=== PATIENT | female | born 1965 | race American Indian/Alaskan Native ===

== ENCOUNTER 2022-05-24 17:44 | Emergency (ER) | payer MEDICARE ==
[2022-05-24] MEDS ORDERED: ASPIRIN 325 MG TAB PO ONE (17:52)
--- NOTE | 2022-05-24 18:16 | XRay Report ---
CHEST 2 VIEWS INDICATION / CLINICAL INFORMATION: chest pain. COMPARISON: None available. FINDINGS: SUPPORT DEVICES: None. HEART / MEDIASTINUM: No significant abnormality. LUNGS / PLEURA: No significant pulmonary or pleural abnormality. No pneumothorax. ADDITIONAL FINDINGS: No significant additional findings. IMPRESSION: 1. No acute findings. Signer Name: Roberto Sandhu MD Signed: 05/24/2022 6:12 PM Workstation Name: [id number]
[2022-05-24] MEDS ORDERED: BUTALB/ACETAMINOPHEN/CAFFEINE TAB PO ONE (22:49)
[2022-05-25 08:19] LABS: Basophils % (Auto) 0.5 % (0.0-1.8); Eosinophils % (Auto) 0.1 % (0.0-4.3); Hematocrit 43.7 % (30.3-42.9); Hemoglobin 14.2 gm/dl (10.1-14.3); Lymphocytes % (Auto) 35.4 % (13.4-35.0); Mean Corpuscular HGB Conc 33 % (30-34); Mean Corpuscular Volume 90 fl (79-97); Monocytes # (Auto) 0.6 K/mm3 (0.0-0.8); Monocytes % (Auto) 11.2 % (0.0-7.3); Platelet Count 120 K/mm3 (140-440); Red Blood Count 4.83 M/mm3 (3.65-5.03); Red Cell Distribution Width 14.4 % (13.2-15.2)
[2022-05-25 08:43] LABS: Alanine Aminotransferase 17 units/L (7-56); Albumin 4.5 g/dL (3.9-5); Blood Urea Nitrogen 7 mg/dL (7-17); Calcium 9.3 mg/dL (8.4-10.2); Hemolysis Index 1
[2022-05-25 08:45] LABS: BUN/Creatinine Ratio 10
[2022-05-25] MEDS ORDERED: dexAMETHasone 4 MG/ML VIAL IM ONE (09:34)
[2022-05-25] MEDS ORDERED: METOCLOPRAMIDE 10 MG TAB PO ONE (09:34)
[2022-05-25] MEDS ORDERED: diphenhydrAMINE 25 MG CAP PO ONE (09:34)
[2022-05-25] MEDS ORDERED: cloNIDine 0.2 MG TAB PO ONE (09:34)
[2022-05-25] MEDS ORDERED: POTASSIUM CHLORIDE ER 20 MEQ TAB PO ONE (09:36)
--- NOTE | 2022-05-25 10:07 | Cat Scan Report ---
CT HEAD WITHOUT CONTRAST INDICATION / CLINICAL INFORMATION: guy, vision changes. TECHNIQUE: All CT scans at this location are performed using CT dose reduction for ALARA by means of automated e xposure control. COMPARISON: None available. FINDINGS: HEMORRHAGE: No evidence of intracranial hemorrhage or extra-axial fluid collection. EXTRA-AXIAL SPACES: Cortical sulci, sylvian fissures and basilar cisterns have an unremarkable appear ance. VENTRICULAR SYSTEM: The third and lateral ventricles are of normal size and configuration. CEREBRAL PARENCHYMA: No areas of abnormal brain parenchymal attenuation are identified. There is no i ndication of recent infarction. MIDLINE SHIFT OR HERNIATION: There is no mass effect. CEREBELLUM / BRAINSTEM: Brainstem and cerebellum have an unremarkable appearance. MIDLINE STRUCTURES:No abnormalities of the pituitary gland or pineal region are identified. INTRACRANIAL VESSELS:No abnormalities are identified on this noncontrast head CT. ORBITS: Bilaterally symmetrical enlargement of the lacrimal glands is noted. Are there signs or sympt oms of Sjogren's syndrome Visualized portions of the orbits have an otherwise unremarkable appearance . SOFT TISSUES of HEAD: No significant abnormality. CALVARIUM: Evaluation of bone windows reveals no abnormalities. PARANASAL SINUSES / MASTOID AIR CELLS: Visualized portions of the paranasal sinuses are free from inf lammatory mucosal disease. Mastoid air cells are normally pneumatized. ADDITIONAL FINDINGS: None. IMPRESSION: 1. No significant intracranial abnormality. 2. Bilateral lacrimal gland enlargement as noted above. Signer Name: Sebastian Taylor MD Signed: 05/25/2022 10:02 AM Workstation Name: [id number]
--- NOTE | 2022-05-25 10:17 | Emergency Department Report ---
ED Chest Pain HPI - General Chief Complaint: Chest Pain Stated Complaint: STROKE SYMPTONS Time Seen by Provider: 05/25/22 09:35 Source: patient Mode of arrival: Ambulatory Limitations: No Limitations - History of Present Illness Initial Comments: 57-year-old black female with a past medical history of hypertension, diabetes, and a CVA presents to the emergency department for evaluation of 5-day history of a headache and chest pain that developed 1 day ago. She states that at home she has had a headache for 5 days and thought that headache was being caused by an elevated blood pressure. She states that she did not take any xsth-[id number]-[id number] medications for her headache. She states that she has some vision changes and photophobia with her headache. She states that yesterday she developed chest pain that was associated with shortness of breath, nausea, and dizziness. She states that she did not have any active vomiting or diaphoresis. She states that pain from her headache and chest pain was 10 on a 10 point scale. MD Complaint: chest pain -: Gradual, days(s) (1) Onset: during rest Pain Location: substernal Pain Radiation: none Severity: severe Severity scale (0 -10): 10 Quality: aching Consistency: constant Worsens With: movement re: nausea, dyspnea. denies: vomting, diaphoresis, sense of impending doom Other Symptoms: denies: cough, fever, syncope, rash, acid taste in mouth, leg swelling, palpitations, burping Treatments Prior to Arrival: none Aspirin use within the Past 7 Days: (0) No - Related Data On Oral Contraceptives: No Previous Rx's Medication Instructions Recorded Last Taken Type Butalb/Acetaminophen/Caffeine 1 cap PO Q6HR PRN #12 cap 05/25/22 Unknown Rx [Fioricet 50-300-40 mg CAP] Allergies Allergy/AdvReac Type Severity Reaction Status Date / Time sulfamethoxazole Allergy Unknown Verified 05/24/22 17:51 [From Bactrim] trimethoprim [From Bactrim] Allergy Unknown Verified 05/24/22 17:51 Heart Score - HEART Score History: Slightly suspicious EKG: Normal Age: 45-65 Risk factors: 1-2 risk factors Troponin: < normal limit HEART Score: 2 - EKG Read Time Time EKG Completed: 17:50 EKG Read Time: 18:00 - Critical Actions Critical Actions: 0-3 pts:0.9-1.7%risk of adverse cardiac event.Candidate for discharge ED Review of Systems ROS: Stated complaint: STROKE SYMPTONS Other details as noted in HPI Comment: All other systems reviewed and negative Constitutional: denies: chills, fever, malaise, weakness Eyes: vision change ENT: denies: congestion Respiratory: shortness of breath. denies: cough, SOB with exertion, SOB at rest, stridor, wheezing Cardiovascular: chest pain. denies: palpitations, dyspnea on exertion, orthopnea, edema, syncope, paroxysmal nocturnal dyspnea Gastrointestinal: nausea. denies: abdominal pain, vomiting, diarrhea, hematemesis, melena, hematochezia Genitourinary: denies: urgency, dysuria Musculoskeletal: denies: back pain Skin: denies: rash, lesions Neurological: headache. denies: weakness, numbness, paresthesias, confusion, abnormal gait, vertigo Psychiatric: denies: anxiety, depression ED Past Medical Hx - Past Medical History Hx Hypertension: Yes Hx CVA: Yes Hx Heart Attack/AMI: Yes - Surgical History Past Surgical History?: No - Medications Home Medications: Home Medications Medication Instructions Recorded Confirmed Last Taken Type Butalb/Acetaminophen/Caffeine 1 cap PO Q6HR PRN #12 cap 05/25/22 Unknown Rx [Fioricet 50-300-40 mg CAP] ED Physical Exam - General Limitations: No Limitations General appearance: alert, in no apparent distress - Head Head exam: Present: atraumatic, normocephalic - Eye Eye exam: Present: normal appearance, PERRL. Absent: conjunctival injection, periorbital swelling, periorbital tenderness Pupils: Present: normal accommodation - ENT ENT exam: Present: normal exam, normal orophraynx - Neck Neck exam: Present: normal inspection, full ROM. Absent: tenderness, meningismus, lymphadenopathy - Respiratory Respiratory exam: Present: normal lung sounds bilaterally. Absent: respiratory distress, wheezes, rales, stridor, chest wall tenderness - Cardiovascular Cardiovascular Exam: Present: regular rate, normal heart sounds - GI/Abdominal GI/Abdominal exam: Present: soft, normal bowel sounds. Absent: distended, tenderness, guarding, rebound, rigid - Extremities Exam Extremities exam: Present: normal inspection, full ROM, normal capillary refill. Absent: tenderness, pedal edema, joint swelling, calf tenderness - Back Exam Back exam: Present: normal inspection. Absent: CVA tenderness (R), CVA tenderness (L) - Neurological Exam Neurological exam: Present: alert, oriented X3, CN II-XII intact, normal gait, reflexes normal. Absent: motor sensory deficit - Expanded Neurological Exam Expanded Patient oriented to: Present: person, place, time Speech: Present: fluid speech Cranial nerves: EOM's Intact: Normal, Gag Reflex: Normal, Tongue Deviation: Normal, Nystagmus: Normal, Facial Sensation: Normal Ataxia: Absent: yes Cerebellar function: Romberg: Normal Sensory exam: Upper Extremity Light Touch: Normal, Upper Extremity Temperature: Normal, Lower Extremity Light Touch: Normal, Lower Extremity Temperature: Normal Motor strength exam: RUE: 5, LUE: 5, RLE: 5, LLE: 5 Best Eye Response (Reeds): (4) open spontaneously Best Motor Response (Reeds): (6) obeys commands Best Verbal Response (Reeds): (5) oriented Reeds Total: 15 - Psychiatric Psychiatric exam: Present: normal affect. Absent: normal mood (Patient crying intermittently during assessment stating that she has been here since 5:00 yesterday and her head still hurts.) - Skin Skin exam: Present: warm, dry, intact, normal color ED Course Vital Signs 05/24/22 05/24/22 05/24/22 17:47 18:31 22:47 Temperature 98.3 F 98.1 F Pulse Rate 92 H 103 H Respiratory 18 18 Rate Blood Pressure 192/122 Blood Pressure 201/115 168/104 [Right] O2 Sat by Pulse 100 99 Oximetry 05/25/22 05/25/22 05/25/22 07:41 10:06 11:14 Temperature 98.6 F Pulse Rate 98 H 86 77 Respiratory 18 20 Rate Blood Pressure 204/129 198/125 Blood Pressure 130/96 [Right] O2 Sat by Pulse 95 100 Oximetry 05/25/22 11:15 Temperature Pulse Rate Respiratory Rate Blood Pressure Blood Pressure [Right] O2 Sat by Pulse 100 Oximetry - Reevaluation(s) Reevaluation #1: 05/25/22 11:38 Headache resolved. Blood pressure improved. Patient states that she feels much better. ELENO score - Eleno Score Age > 65: (0) No Aspirin use within the Past 7 Days: (0) No 3 or more CAD Risk Factors: (0) No 2 or more Angina events in past 24 hrs: (1) Yes Known CAD with more than 50% Stenosis: (0) No Elevated Cardiac Markers: (0) No ST Deviation Greater than 0.5mm: (0) No ELENO Score: 1 ED Medical Decision Making - Lab Data Result diagrams: 05/25/22 08:07 05/25/22 08:07 - Radiology Data Radiology results: report reviewed, image reviewed Chest x-ray: FINDINGS: SUPPORT DEVICES: None. HEART / MEDIASTINUM: No significant abnormality. LUNGS / PLEURA: No significant pulmonary or pleural abnormality. No pneumot horax. ADDITIONAL FINDINGS: No significant additional findings. IMPRESSION: 1. No acute findings. CT scan head and brain without contrast: FINDINGS: HEMORRHAGE: No evidence of intracranial hemorrhage or extra-axial fluid collection. EXTRA-AXIAL SPACES: Cortical sulci, sylvian fissures and basilar cisterns have an unremarkable appearance. VENTRICULAR SYSTEM: The third and lateral ventricles are of normal size and configuration. CEREBRAL PARENCHYMA: No areas of abnormal brain parenchymal attenuation are identified. There is no indication of recent infarction. MIDLINE SHIFT OR HERNIATION: There is no mass effect. CEREBELLUM / BRAINSTEM: Brainstem and cerebellum have an unremarkable appearance. MIDLINE STRUCTURES:No abnormalities of the pituitary gland or pineal region are identified. INTRACRANIAL VESSELS:No abnormalities are identified on this noncontrast head CT. ORBITS: Bilaterally symmetrical enlargement of the lacrimal glands is noted. Are there signs or symptoms of Sjogren's syndrome Visualized portions of the orbits have an otherwise unremarkable appearance. SOFT TISSUES of HEAD: No significant abnormality. CALVARIUM: Evaluation of bone windows reveals no abnormalities. PARANASAL SINUSES / MASTOID AIR CELLS: Visualized portions of the paranasal sinuses are free from inflammatory mucosal disease. Mastoid air cells are normally pneumatized. ADDITIONAL FINDINGS: None. IMPRESSION: 1. No significant intracranial abnormality. 2. Bilateral lacrimal gland enlargement as noted above. - Medical Decision Making 57-year-old black female with a past medical history of hypertension, diabetes, and a CVA presents to the emergency department for evaluation of 5-day history of a headache and chest pain that developed 1 day ago. She states that at home she has had a headache for 5 days and thought that headache was being caused by an elevated blood pressure. She states that she did not take any zzmp-iet-xsmevlr medications for her headache. She states that she has some vision changes and photophobia with her headache. She states that yesterday she developed chest pain that was associated with shortness of breath, nausea, and dizziness. She states that she did not have any active vomiting or diaphoresis. She states that pain from her headache and chest pain was 10 on a 10 point scale. Physical exam unremarkable. Labs including troponin x2, EKG, chest x-ray, and CT scan of the head without any acute abnormalities noted. Headache resolved after medication. Blood pressure improved. Patient will be discharged home with prescription for Fioricet and advised to monitor and record blood pressure and follow-up with her primary care provider if blood pressure remains high and return to the emergency department as needed. She verbalizes understanding of and agreement with plan of care. Critical care attestation.: If time is entered above; I have spent that time in minutes in the direct care of this critically ill patient, excluding procedure time. ED Disposition Clinical Impression: Elevated blood pressure reading Headache Qualifiers: Headache type: unspecified Headache chronicity pattern: acute headache Intractability: not intractable Qualified Code(s): R51.9 - Headache, unspecified Chest pain Qualifiers: Chest pain type: unspecified Qualified Code(s): R07.9 - Chest pain, unspecified Disposition: 01 HOME / SELF CARE / HOMELESS Is pt being admited?: No Does the pt Need Aspirin: No Condition: Stable Instructions: Nonspecific Chest Pain, Adult, Hypertension, Adult, [id number], Managing Your Hypertension, Preventing Hypertension, DASH Eating Plan, Form - Blood Pressure Record Sheet Additional Instructions: Take medications as prescribed. Monitor and record your blood pressure and if it remains elevated follow-up with your primary care provider for possible adjustment of your blood pressure medications. Return to the emergency department as needed. Prescriptions: Butalb/Acetaminophen/Caffeine [Fioricet 50-300-40 mg CAP] 1 cap PO Q6HR PRN #12 cap PRN Reason: Headache Referrals: [facility] [Other] - 3-5 Days JLUIS LUZ MD [Staff Physician] - 3-5 Days Forms: Work/School Release Form(ED) Time of Disposition: 11:47 ED Headache HPI - General Chief Complaint: Chest Pain Stated Complaint: STROKE SYMPTONS Time Seen by Provider: 05/25/22 09:35 Mode of arrival: Ambulatory Limitations: No Limitations - History of Present Illness MD Complaint: headache -: Gradual, days(s) (5) Onset Description: gradual Location: diffuse Severity: severe Severity scale (0 -10): 10 Quality: aching Consistency: constant Associated Symptoms: nausea, photophobia, other (Intermittent vision changes but denies vision loss or blurred vision at this time). denies: fever, vomiting, neck stiffness, sensitivity to sound, syncope, vision loss, scotoma, tingling/numbess, confusion, weakness Other Symptoms: chest pain, SOB Treatments Prior to Arrival: none - Related Data On Hormonal Control: No Previous Rx's Medication Instructions Recorded Last Taken Type Butalb/Acetaminophen/Caffeine 1 cap PO Q6HR PRN #12 cap 05/25/22 Unknown Rx [Fioricet 50-300-40 mg CAP] Allergies Allergy/AdvReac Type Severity Reaction Status Date / Time sulfamethoxazole Allergy Unknown Verified 05/24/22 17:51 [From Bactrim] trimethoprim [From Bactrim] Allergy Unknown Verified 05/24/22 17:51
--- NOTE | 2022-05-25 11:47 | Electrocardiograph Report ---
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
[2022-05-25 12:17] VITALS: BP 138/78
== END 2022-05-25 12:16 | disposition home or self-care (01) ==
LOC: ED 17:44
DX: R51.9 Headache, unspecified (principal); R07.9 Chest pain, unspecified; I10 Essential (primary) hypertension; Z86.73 Personal history of transient ischemic attack (TIA), and cerebral infarction without residual deficits; Z91.09 Other allergy status, other than to drugs and biological substances
CPT/HCPCS: 36415; 70450; 71046; 80053; 84484; 85025; 93005; 96372; 99284; J1100